=== PATIENT | female | born 1990 | race Caucasian/White ===

== ENCOUNTER 2019-10-29 01:21 | Inpatient (IN) | payer OTHER ==
[~2019-10-29] VITALS: Ht 154.9 cm; Wt 72.6 kg
[2019-10-29] MEDS ORDERED: IV RINGERS,LACTATED 1000ML 1,000 ML IV SCH (01:23)
[2019-10-29] MEDS ORDERED: TERBUTALINE 1 MG/ML VIAL. SQ PRN (01:30)
[2019-10-29] MEDS ORDERED: ACETAMINOPHEN 325 MG TABLET. PO PRN (01:30)
[2019-10-29] MEDS ORDERED: 0.9 % SODIUM CHLORIDE 10 ML DISP.SYRIN. IV PRN (01:30)
[2019-10-29] MEDS ORDERED: fentaNYL PF VIAL 100 MCG/2 ML VIAL IVP PRN (01:30)
[2019-10-29] MEDS ORDERED: LIDOCAINE 1% PF 30 ML VIAL. INJ PRN (01:30)
[2019-10-29] MEDS ORDERED: MAG HYDROX/ALUMINUM HYD/SIMETH 30 ML ORAL.SUSP PO PRN (01:30)
[2019-10-29] MEDS ORDERED: ONDANSETRON PF 4 MG/2 ML VIAL. IVP PRN (01:30)
[2019-10-29] MEDS ORDERED: BUTORPHANOL 2 MG/ML VIAL. IVP PRN ×2 (01:30)
[2019-10-29] MEDS ORDERED: OXYTOCIN 30 UNIT/500 ML PREMIX 500 ML IV PRN (01:30)
[2019-10-29] MEDS ORDERED: AMPICILLIN SODIUM 2 GM in IV NORMAL SALINE 100ML 100 ML IV ONE (02:00)
[2019-10-29] MEDS ORDERED: SIMETHICONE 80 MG TAB.CHEW PO PRN (02:15)
[2019-10-29] MEDS ORDERED: diphenhydrAMINE HCL 25 MG CAPSULE PO PRN (02:15)
[2019-10-29] MEDS ORDERED: ZOLPIDEM 5 MG TABLET. PO PRN (02:15)
[2019-10-29] MEDS ORDERED: PHENYLEPH/MINERAL OIL/PETROLAT RECTAL OINTMENT TUBE. RC PRN (02:15)
[2019-10-29] MEDS ORDERED: MMR per PROTOCOL. MC PRN (02:15)
[2019-10-29] MEDS ORDERED: TDaP (Adacel) per PROTOCOL. MC PRN (02:15)
[2019-10-29 02:19] LABS: BILIRUBIN,URINE SMALL (NEG); CLARITY,URINE CLEAR; COLOR,URINE AMBER; NITRITE,URINE NEGATIVE (NEG); PH,URINE 6.5 (<5.0-8.0); PROTEIN,URINE 30 mg/dL (NEG-TRACE)
[2019-10-29 02:25] LABS: BARBITURATES NEG (NEG); BENZODIAZEPINES NEG (NEG); CANNABINOIDS NEG (NEG); COCAINE NEG (NEG); METHADONE NEG (NEG); OPIATES NEG (NEG); PHENCYCLIDINE NEG (NEG)
[2019-10-29 02:27] LABS: AMPHETAMINE/METHAMPHETAMINE NEG (NEG)
--- NOTE | 2019-10-29 02:27 | PDOC ---
GENERAL General: 29 yrs old lady EDC09/08/31 Came by Ambulance as she is in Labor. ALLERGIES Allergies: Allergies Coded Allergies Type Severity Reaction Last Updated Verified No Known Drug Allergies 10/29/19 No ASSESSMENT & PLAN A&P Vital signs stable. Patient was 7cm on arrival and had Precipitous Delivery Alive Male Baby delivered .Placenta delivered Spontaneous. No Hge.EBL 100cc. Mother leaving the Baby for Adoption to her Sister. Covid test Pending. Justicifation of Admission Dx: Justifications for Admission: Justification of Admission Dx: Yes EMMANUEL ROSE MD Oct 29, 2019 02:27
[2019-10-29 02:32] LABS: BACTERIA,URINE FEW /HPF (0-FEW); SQUAMOUS EPITHELIAL CELL,UR MOD /LPF
--- NOTE | 2019-10-29 02:40 | HP ---
ADMIT DATE: 10/29/2019 CHIEF COMPLAINT AND HISTORY OF PRESENT ILLNESS: This patient is 29 years old white female who is a 4, para 3, EDC of 11/21/2019 had a visits at [facility]. Patient came by ambulance and admitted to the hospital here to Labor and Delivery at [facility] because she was having contractions every 2 minutes interval. The patient is in active labor. PHYSICAL EXAMINATION: Physical examination at the time of admission to the hospital revealed cervix was 7 cm dilated and the patient was admitted and she rapidly had a precipitous delivery, a live male infant was delivered at 0136 hours on 10/29/2019 and cord was clamped and baby had a good scores. IMPRESSION: 4, para 3, admitted to the hospital, had a precipitous delivery. Mother tolerated the delivery well. No complications at this time. EMMANUEL ROSE MD DR: LEANDRO/irish JOB#: [id number] / [id number]
--- NOTE | 2019-10-29 03:00 | LDN ---
DATE OF DELIVERY: 10/29/2019 This patient is a 29-year-old white female who is a 4, para 3, EDC 11/21/2019, had her visits at [facility] and the patient came into the hospital via ambulance and admitted to the hospital as she was in active labor with a 2-minute contractions at the time of admission to the hospital, cervix was dilated to about 7 cm and the patient had a precipitous delivery in the bed and baby was delivered by nurse and cord clamped and cut. Placenta removed spontaneous. No hemorrhage. I did come in and see the patient and there is no perineal lacerations. No hemorrhage noted. Mother has tolerated the delivery, no complications and the baby has a small laceration on the penis area and a small Vaseline gauze dressing was placed around the penis in order to stop the oozing. Then, baby is referred to sales representative girls' apparel for further care and treatment. Estimated blood loss 100 mL. The baby is for adoption; the patient's sister is adopting this baby at this time. EMMANUEL ROSE MD DR: LEANDRO/irish JOB#: [id number] / [id number]
[2019-10-29 03:27] VITALS: BP 142/80
[2019-10-29 04:45] VITALS: BP 126/82
[2019-10-29] MEDS: IBUPROFEN 400 MG TABLET. PO PRN ×3 (04:49→18:57)
[2019-10-29 05:36] LABS: BASO % 0 % (0-3); EOS % 0 % (0-3); HEMATOCRIT 33.4 % (36.0-47.0); HEMOGLOBIN 11.1 g/dL (12.0-15.5); LYMPH % 8 % (24-48); MEAN CORPUSCULAR HEMOGLOBIN 30 pg (25-35); MEAN CORPUSCULAR HGB CONC 33 g/dL (31-37); MEAN CORPUSCULAR VOLUME 91 fL (79-100); MONO # 1.2 x10^3/uL (0.0-1.1); MONO % 5 % (0-9); NEUT % 86 % (31-73); PLATELET COUNT 229 x10^3/uL (140-400); RED BLOOD COUNT 3.68 x10^6/uL (3.50-5.40); RED CELL DISTRIBUTION WIDTH 13.3 % (11.5-14.5); WHITE BLOOD COUNT 24.3 x10^3/uL (4.0-11.0)
[2019-10-29 10:00] VITALS: BP 119/83
[2019-10-29 11:03] LABS: % BANDS 1 % (0-9); % LYMPHS 9 % (24-48); % MONOS 3 % (0-10); % SEGS 87 % (35-66)
[2019-10-29 11:45] LABS: PLT ESTIMATE ADEQUATE (ADEQUATE)
--- NOTE | 2019-10-29 12:06 | PDOC ---
GENERAL General: Patient Doing ok. No Problems. VITAL SIGNS Vital Signs/I&O: Vital Signs Date Time Temp Pulse Resp B/P (MAP) Pulse Ox O2 Delivery O2 Flow Rate FiO2 10/29/19 10:00 97.8 77 18 119/83 (95) 98 Room Air 97.8 I & O 10/28/19 10/28/19 10/29/19 15:00 23:00 07:00 Intake Total 50 ml Balance 50 ml ALLERGIES Allergies: Allergies Coded Allergies Type Severity Reaction Last Updated Verified No Known Drug Allergies 10/29/19 No MEDS Medications: Current Medications Medications (Trade) Dose Ordered Sig/Ankush Route PRN Reason Start Time Stop Time Status Last Admin Dose Admin Ringer's Solution 1,000 ml @ 125 mls/hr Q8H IV 10/29/19 01:23 10/29/19 04:17 DC 10/29/19 02:26 Fentanyl Citrate (Fentanyl 2ml Vial) 100 mcg PRN Q10MIN PRN IVP Labor pain 10/29/19 01:30 10/29/19 04:17 DC 10/29/19 02:27 Acetaminophen (Tylenol) 650 mg PRN Q6HRS PRN PO MILD PAIN / TEMP > 100.3'F 10/29/19 01:30 10/29/19 08:54 Oxytocin/Sodium Chloride 500 ml @ 0 mls/hr CONT PRN PRN IV Post delivery bleeding 10/29/19 01:30 10/29/19 04:17 DC 10/29/19 02:26 Ibuprofen (Motrin) 800 mg PRN Q6HRS PRN PO MODERATE PAIN 4-6 10/29/19 01:30 10/29/19 10:38 LAB Lab: Laboratory Tests Test 10/29/19 02:00 10/29/19 02:15 10/29/19 05:10 Urine Collection Type Unknown Urine Color Madelyn Urine Clarity Clear Urine pH 6.5 (<5.0-8.0) Urine Specific [place] 1.025 (1.000-1.030) Urine Protein 30 mg/dL (NEG-TRACE) Urine Glucose (UA) Negative mg/dL (NEG) Urine Ketones (Stick) 40 mg/dL (NEG) Urine Blood Small (NEG) Urine Nitrite Negative (NEG) Urine Bilirubin Small (NEG) Urine Urobilinogen Dipstick 1.0 mg/dL (0.2 mg/dL) Urine Leukocyte Esterase Trace (NEG) Urine RBC 3-5 /HPF (0-2) Urine WBC 1-4 /HPF (0-4) Urine Squamous Epithelial Cells Mod /LPF Urine Bacteria Few /HPF (0-FEW) Urine Mucus Mod /LPF Urine Opiates Screen Neg (NEG) Urine Methadone Screen Neg (NEG) Urine Barbiturates Neg (NEG) Urine Phencyclidine Screen Neg (NEG) Urine Amphetamine/Methamphetamine Neg (NEG) Urine Benzodiazepines Screen Neg (NEG) Urine Cocaine Screen Neg (NEG) Urine Cannabinoids Screen Neg (NEG) Urine Ethyl Alcohol Neg (NEG) SARS-CoV-2 Antigen (Rapid) Negative (NEGATIVE) White Blood Count 24.3 x10^3/uL (4.0-11.0) H Red Blood Count 3.68 x10^6/uL (3.50-5.40) Hemoglobin 11.1 g/dL (12.0-15.5) L Hematocrit 33.4 % (36.0-47.0) L Mean Corpuscular Volume 91 fL (79-100) Mean Corpuscular Hemoglobin 30 pg (25-35) Mean Corpuscular Hemoglobin Concent 33 g/dL (31-37) Red Cell Distribution Width 13.3 % (11.5-14.5) Platelet Count 229 x10^3/uL (140-400) Neutrophils (%) (Auto) 86 % (31-73) H Lymphocytes (%) (Auto) 8 % (24-48) L Monocytes (%) (Auto) 5 % (0-9) Eosinophils (%) (Auto) 0 % (0-3) Basophils (%) (Auto) 0 % (0-3) Neutrophils # (Auto) 21.0 x10^3/uL (1.8-7.7) H Lymphocytes # (Auto) 2.0 x10^3/uL (1.0-4.8) Monocytes # (Auto) 1.2 x10^3/uL (0.0-1.1) H Eosinophils # (Auto) 0.0 x10^3/uL (0.0-0.7) Basophils # (Auto) 0.0 x10^3/uL (0.0-0.2) Segmented Neutrophils % 87 % (35-66) H Band Neutrophils % 1 % (0-9) Lymphocytes % 9 % (24-48) L Monocytes % 3 % (0-10) Platelet Estimate Adequate (ADEQUATE) Laboratory Tests 10/29/19 05:10 ASSESSMENT & PLAN A&P Vital signs stable. Not bleeding much. Resting well. Plan to go home tomorrow. Patient is Leaving the Baby for Adoption by her Sister. Justicifation of Admission Dx: Justifications for Admission: Justification of Admission Dx: Yes EMMANUEL ROSE MD Oct 29, 2019 12:06
--- NOTE | 2019-10-29 12:55 | NUR ---
SS following up with referral regarding "mother states she will be adopting out baby to her sister who is also present in hospital." SS met with RN and reviewed pt chart. SS met with mother to assess circumstances surrounding the referral. Mother and sister present in room. Mother reported that she wanted her sister, Tiffanie Mcfarlane, , to adopt . Pt's sister reported that her address is [address] [place] [id number]. Pt's sister reported being agreeable to adoption. Mother reported that no marble machine operator or agency has been contacted at this time. Mother reported that she lives in [place], [place]. Pt's sister reported having everything needed for to include bassinet, car seat, clothing, diapers, formula, and wipes. Pt's sister reported that she has good transportation. She reported that infant will be seen at [facility] in [place], [place]. SS contacted [employer] and was given the names of two customer operations representative's, Clemente Nam, , and Lois Posada, . SS was notified to have mother contact the customer operations representative's to have adoption process started. Social Services Specialist numbers provided to mother and sister. SS requested that mother contact customer operations representative's today to get the process of adoption started. Infant RN, notified.
[2019-10-29 16:30] VITALS: BP 131/92
--- NOTE | 2019-10-29 16:55 | NUR ---
Patient tearful C/O of yelling coming from patients room. Upon assessment patient no yelling was observed but patient was visibly upset talking with her children through Facetime. Patient didn't want to discuss the issue, but her support person said she would be leaving to handle the situation and she may not return until tomorrow because of the visiting hours in place at the hospital. Patient asked if she could walk her sister out. Patient and sister ambulated off of the unit, baby is in the nursery with staff. Patient returned to floor 10 minutes later. Patient seemed to be in better spirits. Addendum: 10/29/19 at 1720 by SHANNON MCCARTNEY RN Amended: Links added.
[2019-10-29] MEDS: DOCUSATE SODIUM 100 MG CAPSULE. PO PRN (18:57)
[2019-10-29 21:50] VITALS: BP 124/86
[2019-10-30 04:44] VITALS: BP 123/72
[2019-10-30] MEDS ORDERED: FERROUS SULFATE 325 MG TABLET. PO SCH (08:00)
[2019-10-30 09:20] VITALS: BP 119/82
[2019-10-30] MEDS: IBUPROFEN 400 MG TABLET. PO PRN (09:26)
[2019-10-30] MEDS: DOCUSATE SODIUM 100 MG CAPSULE. PO PRN (09:26)
--- NOTE | 2019-10-30 11:31 | PDOC ---
GENERAL General: Patient doing ok. No problems . Wants to go home. VITAL SIGNS Vital Signs/I&O: Vital Signs Date Time Temp Pulse Resp B/P (MAP) Pulse Ox O2 Delivery O2 Flow Rate FiO2 10/30/19 09:20 98.1 91 18 119/82 (94) 97 Room Air 98.1 I & O 10/29/19 10/29/19 10/30/19 15:00 23:00 07:00 Intake Total 400 ml Output Total 200 ml Balance -200 ml 400 ml ALLERGIES Allergies: Allergies Coded Allergies Type Severity Reaction Last Updated Verified No Known Drug Allergies 10/29/19 No LAB Lab: Laboratory Tests Test 10/30/19 05:15 Hematocrit 35.1 % (36.0-47.0) L Laboratory Tests 10/30/19 05:15 ASSESSMENT & PLAN A&P Vital signs stable. Lochia normal. Patient waiting for Power of [employer] Papers for Adopting the Baby to her Sister. Patient can go home. RTO in 6 weeks. Justicifation of Admission Dx: Justifications for Admission: Justification of Admission Dx: Yes EMMANUEL ROSE MD Oct 30, 2019 11:31
[2019-10-30 12:45] VITALS: BP 129/90
--- NOTE | 2019-10-30 13:55 | NUR ---
Discharge Note: Patient denies needs or questions at this time. Cab pass provided to patient per her request. Patient escorted by RN to cab with belongings and NB in car seat. Patient discharged home with baby. Nayana Gan RN
== END 2019-10-30 13:55 | disposition home or self-care (01) | DRG 807 ==
LOC: 3 SO LND 01:21 → OBSVTOIN 01:21 → 3 NORTH 04:30
PROVIDERS: ADMIT Obstetrics & Gynecology; ATTEND Obstetrics & Gynecology
PROC: 10E0XZZ Delivery of Products of Conception, External Approach (ICD-10-PCS; principal; 2019-10-29)
DX: O62.3 Precipitate labor (principal); Z37.0 Single live birth; Z20.828 Contact with and (suspected) exposure to other viral communicable diseases; Z3A.40 40 weeks gestation of pregnancy
CPT/HCPCS: 36415; 80307; 81001; 85007; 85014; 85025; 86592; 86762; 86850; 86900; 86901; 87086; 87340; 87426; J2590; J3010; J7120; G0378; U0003-CS